=== PATIENT | male | born 1950 | race Caucasian/White ===

== ENCOUNTER 2021-03-08 12:45 | Outpatient (CLI) | payer OTHER, SELFPAY ==
[2021-03-08 14:11] LABS: Blood Urea Nitrogen 12 mg/dL (8-23)
--- NOTE | 2021-03-08 14:30 | CT_ITS ---
WS: [id number] CT ABDOMEN AND PELVIS WITH AND WITHOUT CONTRAST HISTORY: GROSS HEMATURIA TECHNIQUE: Unenhanced 5 mm axial imaging first performed through the abdomen. Post contrast imaging t hrough the abdomen and pelvis. Oral contrast has been provided. Sagittal and coronal reformats are s ubmitted. All CT scans at [facility] use at least one of these dose optimization techniqu es: automated exposure control; mA and/or kV adjustment per patient size (includes targeted exams whe re dose is matched to clinical indication); or iterative reconstruction. CONTRAST: Visipaque 320; 95 mL IV. DLP: 1930.5 mGy.cm COMPARISON: None available. Normal size heart. Small hiatal hernia. No pneumonia. Liver, spleen and pancreas are negative. Gallbladder is contracted. No adrenal mass. Mild atheroscler osis aorta. No free fluid or adenopathy. Normal appearance the GI tract. The appendix is normal. RIGHT kidney: 9.6 cm in length. Very mild atrophy. No renal calcification or mass. No obstruction. No uroepithelial lesions. LEFT kidney: 9.7 cm in length. Mild perinephric stranding with no obstruction. No calcifications. No uroepithelial lesions. Urinary bladder is normally distended. No enhancing nodules. Prostate gland is enlarged and heterogen eous encroaching into the urinary bladder. Prostate measures 5.8 x 4.[address]/CT abdomen pelvis wo/w [id number] IMPRESSION: 1. No renal calcifications or mass. 2. Enlarged heterogeneous enhancing prostate gland encroaching into the urinar y bladder. 3. No enhancing bladder masses otherwise. 4. Normal appendix.
[2021-03-08] MEDS: iodixanol 320 mg/mL 100mL Btl IV (14:42)
== END 2021-03-08 12:46 | disposition home or self-care (01) ==
PROVIDERS: PCP Family Medicine; Visit Provider Urology
DX: R31.0 Gross hematuria (principal); N40.0 Benign prostatic hyperplasia without lower urinary tract symptoms
CPT/HCPCS: 74178; 81003; 82565; 84520; 87086; 88112

== ENCOUNTER → 2021-04-25 15:52 | Outpatient (BNVA) | payer OTHER, SELFPAY | PROVIDERS: PCP Family Medicine; Visit Provider Urology | DX: Z12.5 Encounter for screening for malignant neoplasm of prostate (principal); R31.0 Gross hematuria | CPT/HCPCS: 81003; G0103 ==

== ENCOUNTER → 2021-06-22 08:29 | Outpatient (BNVA) | payer OTHER, SELFPAY | PROVIDERS: PCP Family Medicine; Visit Provider Urology | DX: R31.0 Gross hematuria (principal) | CPT/HCPCS: 81003 ==

== ENCOUNTER → 2021-07-29 18:26 | Outpatient (BNVA) | payer OTHER, SELFPAY | PROVIDERS: PCP Family Medicine; Visit Provider Nurse Practitioner Family | DX: Z20.822 Contact with and (suspected) exposure to COVID-19 (principal) | CPT/HCPCS: 87635 ==

== ENCOUNTER → 2022-06-21 09:36 | Outpatient (BNVA) | payer OTHER, SELFPAY | PROVIDERS: PCP Family Medicine; Visit Provider Urology | DX: R31.0 Gross hematuria (principal); Z87.438 Personal history of other diseases of male genital organs | CPT/HCPCS: 81003 ==